=== PATIENT | female | born 1975 ===

== ENCOUNTER 2018-05-07 03:29 | Emergency (ER) | payer MEDICAID ==
--- NOTE | 2018-05-07 04:15 | EDPHY ---
H & P Stated Complaint: L throbbing leg for several hours. Time Seen by Provider: 05/07/18 03:43 HPI/ROS: CHIEF COMPLAINT: Left leg pain starting 2 hr ago HISTORY OF PRESENT ILLNESS: Previously healthy 42-year-old female who went to bed around 9:00 p.m. Tonight as she was fatigued. She woke from a sound sleep approximately 2 hr prior to admission which time she had a throbbing type sensation to the mid lateral aspect of the left lower leg. Since that time is continued, it was minimally worse with walking, but it has not expanded or migrated. It does not including her thigh along with that. She cannot recall any specific injury. Granted, she did take an uneventful 45 min walk around like [employer] on gravel, level ground earlier today - her first walk this week. No prior history of DVT or PE. Her mother did have a DVT. Though she does not know the specifics of that event. However, likewise she has not been ever told of a family history of hypercoagulable syndrome. Further she does not take control pills and there has been no recent trauma or injury to the leg or trauma in general or surgery or immobilization or cast wearing. The pain itself is mild. Localized. None migratory. Persistent. It is not worse with walking. Somewhat worse when she touches. No radiation Right-handed As to her recent workup, she describes being in hot state while at buddhist the other day being overcome by sense of inability to move as well as profound sweat. With that she had a sense of warmth. After a good 40 min she was able to get up from the meditation make it to the bathroom at which point she laid on the bathroom floor however she was very chilled at that point due to the sweating. She went to a local urgent care who advised her to go by ambulance to Hospital of which she declined. She went home and rested and then the next morning was seen by her family physician. They had speculated some form of migraine syndrome and yesterday gave her shot of ketorolac IM deltoid. REVIEW OF SYSTEMS: Constitutional - no fevers or chills Respiratory - No Shortness of breath, cough, phlegm, wheezing or pleuritic chest pain. GI - no nausea vomiting or diarrhea. There is no abdominal pain or distention. Musculoskeletal - see above A 10 system review of systems was performed and is negative except for the noted findings in the HPI. Source: Patient - Personal History LMP (Females 10-55): Now Current Tetanus/Diphtheria Vaccine: Yes Current Tetanus Diphtheria and Acellular Pertussis (TDAP): Yes Tetanus Vaccine Date: 2014 - Medical/Surgical History Hx Asthma: No Hx Chronic Respiratory Disease: No Hx Diabetes: No Hx Cardiac Disease: No Hx Renal Disease: No Hx Cirrhosis: No Hx Alcoholism: No Hx HIV/AIDS: No Hx Splenectomy or Spleen Trauma: No Other PMH: narcolepsy, R toe flap. - Social History Smoking Status: Former smoker Alcohol Use: None Drug Use: None - Physical Exam Exam: General Appearance: Alert, no distress. Afebrile. Normal phonation. No respiratory distress. Eyes: No icterus ENT, Mouth: Mucous membranes Neck: Supple. No JVD. Trachea in midline. Respiratory: There are no retractions, lungs are clear to auscultation. Cardiovascular: Regular rate and rhythm, no murmur Neurological: Ox3. No motor weakness. Sensation intact. Gait nl. Skin: Warm and dry, no rashes. Musculoskeletal: No joint swelling. Extremities: No edema. Homans sign negative. No cords. Calf circumference 34 cm bilaterally. Symmetrical popliteal, dorsalis pedis and posterior tibialis pulses. Good capillary refill Psychiatric: Anxious, but it has been a long week for her and is in the middle the night. Patient is oriented X 3. There is no agitation. . Constitutional: Initial Vital Signs Temperature (C) 36.4 C 05/07/18 03:32 Heart Rate 67 05/07/18 03:32 Respiratory Rate 16 05/07/18 03:32 Blood Pressure 118/74 05/07/18 03:32 O2 Sat (%) 96 05/07/18 03:32 O2 Delivery Mode Room Air Allergies/Adverse Reactions: modafinil [From Provigil] Allergy (Intermediate, Verified 05/07/18 03:31) Rash Home Medications: Medication Instructions Recorded NK [No Known Home Meds] 05/07/18 Medical Decision Making ED Course/Re-evaluation: There are no symptoms to suggest a PE. Her perc score is 0. no Immobilize - casting/paresis: no Bedridden / Surgery in 4 weeks no Locally tender to deep system no Calf >3cm no Pitting edema of involved leg no Swollen veins, non varicose, superficial no Active Cancer < 6 mo. no Other Dx more llikely (-2) = bakers, cellulitis, muscle damage yes Her Wells score is -2. Thus with a negative D-dimer this would be considered low risk and thus no further diagnostic testing necessary at this point in time. She is aware of the need to follow up with if it continues to persist. Differential Diagnosis: The differential diagnosis includes but is not limited to: DVT, Sprain, Strain, Nerve injury, Contusion. - Data Points Point of Care Test Results: D-Dimer D-Dimer Collection Date 05/07/18 D-Dimer Collection Time 03:55 D-Dimer (ng/ml) 100 Departure - Departure Disposition: Home, Routine, Self-Care Clinical Impression: Muscle strain Condition: Good Instructions: Muscle Strain (ED) Additional Instructions: Have a recheck of this area if it does not improve in the next 7 days. It would be a good idea to stretch and massage the area. Heat as needed for comfort, though use ice if it is getting worse. Tylenol or ibuprofen may also, particularly at night. Referrals: [facility],. [Clinic] - As per Instructions Patient,NotPresent [Unknown] - As per Instructions
[2018-05-07 05:54] VITALS: BP 103/74
== END 2018-05-07 04:35 | disposition home or self-care (01) ==
LOC: CED 03:29
DX: M79.605 Pain in left leg (principal)